=== PATIENT | female | born 1955 | race Caucasian/White ===

== ENCOUNTER 2018-08-13 11:42 | Day surgery (SDC) | payer BC ==
[~2018-08-13 11:42] MED LIST: PROPOFOL 200 MG INJ
[2018-08-13] MEDS ORDERED: PROPOFOL 60 ML (12:57)
[2018-08-13] MEDS ORDERED: LIDOCAINE 2% (SDV) 5 ML INJ (12:57)
== END 2018-08-13 14:11 | disposition home or self-care (01) ==
LOC: GIL 11:42
DX: K21.0 Gastro-esophageal reflux disease with esophagitis (principal); K29.00 Acute gastritis without bleeding; E66.9 Obesity, unspecified; Z68.41 Body mass index [BMI] 40.0-44.9, adult
CPT/HCPCS: 43239; 88305; 88312; 88313